=== PATIENT | male | born 1960 | race Two or more races ===

== ENCOUNTER 2022-12-12 17:46 | Inpatient (IN) | payer OTHER ==
[~2022-12-12] VITALS: Ht 170.2 cm; Wt 70.1 kg
[2022-12-12 21:54] LABS: Basophils # (auto) 0 10 ^3/uL (0-0.2); Eosinophils # (auto) 0.1 10 ^3/uL (0-0.8); Hematocrit 17.1 % (41.0-53.0); Lymphocytes # (auto) 0.4 10 ^3/uL (0.4-5.4); Monocytes # (auto) 0.2 10 ^3/uL (0-1.3); Neutrophils # (auto) 2.4 10 ^3/uL (1.6-8.6)
[2022-12-12 21:56] LABS: Basophils % (auto) 0.5 % (0.0-2.0); Eosinophils % (auto) 1.9 % (0.0-7.0); Lymphocytes % (auto) 13.9 % (10.0-50.0); Mean Corpuscular Hgb Conc. 34.2 g/dL (32.0-36.0); Mean Corpuscular Volume 81.9 fL (80.0-100.0); Monocytes % (auto) 5.1 % (0.0-12.0); Neutrophils % (auto) 78.6 % (37.0-80.0); Nucleated Red Blood Cells % 0.1 %; Red Blood Cells 2.09 10^6/uL (4.5-5.90); Red Cell Distribution Width 14.3 % (11.8-14.3); White Blood Cell 3.1 10^3/uL (4.4-10.8)
[2022-12-12 22:05] LABS: Hemoglobin 5.8 g/dL (13.5-17.5)
[2022-12-12 22:16] LABS: Albumin 2.5 g/dL (3.4-5.0); BUN/Creatinine Ratio 21.1; Calcium 7.9 mg/dL (8.5-10.1); Potassium 4.7 mmol/L (3.5-5.1)
[2022-12-12 22:18] LABS: Bilirubin, Total 0.3 mg/dL (0.2-1.0); Total Protein 5.7 g/dL (6.4-8.2)
[2022-12-12 23:04] LABS: Urine Bacteria NONE SEEN /hpf (None Seen); Urine Blood Negative /uL (Negative); Urine Hyaline Cast FEW /lpf (0 - 2); Urine Mucus FEW (None Seen); Urine Specific Gravity 1.012 (1.001-1.035); Urine WBC 1 /hpf (0 - 3)
[2022-12-12 23:30] LABS: Alcohol, Urine < 3.0 mg/dL (0-10); Amphetamine Screen, Urine NEGATIVE (NEGATIVE); Barbiturate Scree,Urine NEGATIVE (NEGATIVE); Benzodiazephine Screen, Urine NEGATIVE (NEGATIVE); Cannabinoid Screen, Urine NEGATIVE (NEGATIVE); Cocaine Screen, Urine NEGATIVE (NEGATIVE); Opiate Scree,Urine NEGATIVE (NEGATIVE); Phencyclidine Screen, Urine NEGATIVE (NEGATIVE)
[2022-12-13] VITALS (13 sets, daily range): BP systolic 146–186; BP diastolic 58–89
[2022-12-13] MEDS ORDERED: DOCUSATE SOD 100 MG CAP PO PRN (00:30)
[2022-12-13] MEDS ORDERED: DEXTROSE (50%) 50ML SYRG IV PRN (00:30)
[2022-12-13] MEDS ORDERED: ACETAMINOPHEN 325 MG TAB PO PRN (00:30)
[2022-12-13] MEDS ORDERED: ONDANSETRON HCL 4 MG/2 ML VIAL IV PRN (00:30)
[2022-12-13] MEDS ORDERED: HYDROcodone-ACET 5/325MG TAB PO PRN (00:30)
[2022-12-13] MEDS ORDERED: NITROGLYCERIN 0.4 MG SL TAB SL PRN (01:15)
[2022-12-13] MEDS ORDERED: MORPHINE SULFATE INJ 2 MG/ml SYRG IV PRN (01:15)
[2022-12-13 06:04] LABS: Potassium 4.3 mmol/L (3.5-5.1)
[2022-12-13] MEDS: SODIUM CHLOR 0.9% PF (SALINE LOCK) 10ML VIAL/SYR IV SCH ×2 (06:08→15:29)
[2022-12-13 06:13] LABS: Albumin 2.4 g/dL (3.4-5.0); BUN/Creatinine Ratio 21.1; Bilirubin, Total 0.4 mg/dL (0.2-1.0); Calcium 7.7 mg/dL (8.5-10.1); Total Protein 5.6 g/dL (6.4-8.2)
[2022-12-13] MEDS ORDERED: HEPARIN SODIUM (PORCINE) 5000 UNITS/ML 1ML VIAL SC ONE (06:30)
[2022-12-13] MEDS ORDERED: FUROSEMIDE 40 MG/4 ML VIAL IV ONE (06:30)
[2022-12-13] MEDS: ACCU-CHEK COMFORT CURVE STRIP VI SCH ×4 (07:00→21:45)
[2022-12-13] MEDS: InsuLIN REG 1unit/0.01ml Soln (100units/ml) SC SCH ×4 (07:00→21:45)
[2022-12-13] MEDS ORDERED: ISOS1TAB28 PO (08:48)
[2022-12-13] MEDS ORDERED: ATOR40TA52 PO (08:48)
[2022-12-13] MEDS: PANTOPRAZOLE 40 MG/10 ML VIAL INJ IV SCH (09:07)
[2022-12-13] MEDS: ATORVASTATIN 20 MG TAB PO SCH (09:07)
[2022-12-13] MEDS: B-COMPLEX W/ C & FOLIC ACID(NEPHROVITE TAB) PO SCH (09:08)
[2022-12-13] MEDS: METOPROLOL SUCCINATE XL 50 MG TAB PO SCH (09:08)
[2022-12-13] MEDS: ASPirin 81 mg TAB PO SCH (09:09)
[2022-12-13] MEDS: hydrALAZINE HCL 20 MG/ML VL IV PRN (09:37)
[2022-12-13] MEDS ORDERED: CLOPIDOGREL BISULFATE 75 MG TAB PO SCH (10:00)
[2022-12-13] MEDS ORDERED: FUROSEMIDE 20 MG/2 ML VIAL IV SCH (10:00)
[2022-12-13] MEDS ORDERED: FUROSEMIDE 40 MG/4 ML VIAL IV SCH (10:00)
[2022-12-13] MEDS ORDERED: HEPARIN SODIUM (PORCINE) 5000 UNITS/ML 1ML VIAL SC SCH (10:00)
[2022-12-13] MEDS ORDERED: POTASSIUM CHL 10 Meq TABLET PO SCH (10:00)
[2022-12-13] MEDS ORDERED: FAMOTIDINE (10MG/ML) 2ML VL IV SCH (10:00)
[2022-12-13 10:52] LABS: Basophils # (auto) 0 10 ^3/uL (0-0.2); Basophils % (auto) 0.6 % (0.0-2.0); Eosinophils # (auto) 0.1 10 ^3/uL (0-0.8); Eosinophils % (auto) 2.1 % (0.0-7.0); Hematocrit 26.3 % (41.0-53.0); Hemoglobin 8.8 g/dL (13.5-17.5); Lymphocytes # (auto) 0.5 10 ^3/uL (0.4-5.4); Lymphocytes % (auto) 14.7 % (10.0-50.0); Mean Corpuscular Hemoglobin 28.6 pg (28.0-32.0); Mean Corpuscular Hgb Conc. 33.4 g/dL (32.0-36.0); Mean Corpuscular Volume 85.8 fL (80.0-100.0); Monocytes # (auto) 0.2 10 ^3/uL (0-1.3); Monocytes % (auto) 5.6 % (0.0-12.0); Neutrophils # (auto) 2.4 10 ^3/uL (1.6-8.6); Nucleated Red Blood Cells % 0.1 %; Red Blood Cells 3.07 10^6/uL (4.5-5.90); Red Cell Distribution Width 14.9 % (11.8-14.3); White Blood Cell 3.2 10^3/uL (4.4-10.8)
[2022-12-13 11:09] LABS: INR 1.11 (0.9-1.15); Partial Thromboplastin Time 29.2 sec (24.6-33.4)
[2022-12-13] MEDS ORDERED: cloNIDine HCL 0.1 MG TAB PO ONE (11:45)
[2022-12-13] MEDS ORDERED: OCTREOTIDE ACETATE 100 MCG in SODIUM CHL 0.9% 50 ML IV ONE (17:30)
[2022-12-13] MEDS: OCTREOTIDE ACETATE 500 MCG in SODIUM CHL 0.9% 99 ML IV SCH (17:45)
[2022-12-14] MEDS: OCTREOTIDE ACETATE 500 MCG in SODIUM CHL 0.9% 99 ML IV SCH (03:30)
[2022-12-14] MEDS: PANTOPRAZOLE 40 MG/10 ML VIAL INJ IV SCH ×3 (04:55→21:57)
[2022-12-14] MEDS: SODIUM CHLOR 0.9% PF (SALINE LOCK) 10ML VIAL/SYR IV SCH ×4 (04:55→21:57)
[2022-12-14] MEDS: InsuLIN REG 1unit/0.01ml Soln (100units/ml) SC SCH ×4 (05:34→21:57)
[2022-12-14] MEDS: ACCU-CHEK COMFORT CURVE STRIP VI SCH ×4 (05:40→21:57)
[2022-12-14 06:11] LABS: Basophils # (auto) 0 10 ^3/uL (0-0.2); Basophils % (auto) 0.5 % (0.0-2.0); Eosinophils # (auto) 0.1 10 ^3/uL (0-0.8); Eosinophils % (auto) 3.3 % (0.0-7.0); Hematocrit 27.1 % (41.0-53.0); Lymphocytes # (auto) 0.6 10 ^3/uL (0.4-5.4); Mean Corpuscular Hgb Conc. 33.4 g/dL (32.0-36.0); Mean Corpuscular Volume 86.9 fL (80.0-100.0); Monocytes # (auto) 0.3 10 ^3/uL (0-1.3); Monocytes % (auto) 7.5 % (0.0-12.0); Neutrophils # (auto) 2.9 10 ^3/uL (1.6-8.6); Neutrophils % (auto) 73.7 % (37.0-80.0); Nucleated Red Blood Cells % 0.1 %; Red Blood Cells 3.12 10^6/uL (4.5-5.90); White Blood Cell 3.9 10^3/uL (4.4-10.8)
[2022-12-14 06:42] LABS: Potassium 5.5 mmol/L (3.5-5.1)
[2022-12-14 06:53] LABS: Albumin 2.8 g/dL (3.4-5.0); BUN/Creatinine Ratio 21.5; Bilirubin, Total 0.7 mg/dL (0.2-1.0); Calcium 7.9 mg/dL (8.5-10.1); Total Protein 6.7 g/dL (6.4-8.2); Uric Acid 11.3 mg/dL (3.5-7.2)
[2022-12-14 06:59] LABS: % Iron Saturation 15.3 % (20-55)
[2022-12-14] MEDS: ISOSORBIDE MONONITRATE ER 60 MG TAB PO SCH (07:15)
[2022-12-14 08:00] VITALS: BP 181/82
[2022-12-14 09:00] VITALS: BP_SYST 160; BP_SYST 172; BP_DIAS 74; BP_DIAS 83
[2022-12-14] MEDS: METOPROLOL SUCCINATE XL 50 MG TAB PO SCH (10:20)
[2022-12-14] MEDS: ASPirin 81 mg TAB PO SCH (10:20)
[2022-12-14] MEDS: B-COMPLEX W/ C & FOLIC ACID(NEPHROVITE TAB) PO SCH (10:20)
[2022-12-14] MEDS: ATORVASTATIN 20 MG TAB PO SCH (10:21)
[2022-12-14] MEDS ORDERED: OMNIPAQUE ORAL SOLN 500ml 12mg/ml PO ONE (10:51)
[2022-12-14] MEDS: hydrALAZINE HCL 20 MG/ML VL IV PRN ×2 (13:21→18:30)
[2022-12-14 17:00] VITALS: BP 160/75
[2022-12-14] MEDS ORDERED: FUROSEMIDE 100 MG/10ML VIAL IV ONE (18:15)
[2022-12-14] MEDS ORDERED: SODIUM CHLORIDE 0.9% 1,000 ML IV ONE (18:15)
[2022-12-14 21:27] LABS: Urine Bacteria NONE SEEN /hpf (None Seen); Urine Blood Negative /uL (Negative); Urine WBC 1 /hpf (0 - 3)
[2022-12-14 21:44] LABS: Protein, Urine 228.7 mg/dL (0.0-11.9)
[2022-12-14 22:00] VITALS: BP 151/68
[2022-12-15 05:00] VITALS: BP 158/78
[2022-12-15] MEDS: ACCU-CHEK COMFORT CURVE STRIP VI SCH ×4 (06:16→22:35)
[2022-12-15] MEDS: ISOSORBIDE MONONITRATE ER 60 MG TAB PO SCH (06:16)
[2022-12-15] MEDS: SODIUM CHLOR 0.9% PF (SALINE LOCK) 10ML VIAL/SYR IV SCH ×3 (06:16→22:35)
[2022-12-15] MEDS: InsuLIN REG 1unit/0.01ml Soln (100units/ml) SC SCH ×4 (06:17→22:00)
[2022-12-15 08:10] VITALS: BP 158/80
[2022-12-15] MEDS ORDERED: NALOXONE HCL 0.4 MG/ML VIAL ONE (08:36)
[2022-12-15] MEDS ORDERED: LIDOCAINE VISCOUS 2% 15ML UD ONE (08:36)
[2022-12-15] MEDS ORDERED: FLUMAZENIL 0.1 MG/ML INJ 10ML MDV IV ONE (08:36)
[2022-12-15] MEDS ORDERED: diphenhdrAMINE HCL 50 MG/1 ML VL ONE (08:37)
[2022-12-15] MEDS ORDERED: MIDAZOLAM HCL 2MG/2ML 2ml VIAL (1mg/ml) ONE (08:37)
[2022-12-15] MEDS ORDERED: fentaNYL CITRATE 100 MCG/2 ML VL ONE (08:37)
[2022-12-15] MEDS: B-COMPLEX W/ C & FOLIC ACID(NEPHROVITE TAB) PO SCH (09:14)
[2022-12-15] MEDS: PANTOPRAZOLE 40 MG/10 ML VIAL INJ IV SCH ×2 (09:14→22:35)
[2022-12-15] MEDS: METOPROLOL SUCCINATE XL 50 MG TAB PO SCH (09:15)
[2022-12-15] MEDS: ATORVASTATIN 20 MG TAB PO SCH (09:15)
[2022-12-15] MEDS: ASPirin 81 mg TAB PO SCH (09:16)
[2022-12-15 11:35] LABS: Albumin 2.7 g/dL (3.4-5.0); Calcium 7.5 mg/dL (8.5-10.1); Potassium 5.3 mmol/L (3.5-5.1)
[2022-12-15 11:39] LABS: BUN/Creatinine Ratio 19.6; Bilirubin, Total 0.8 mg/dL (0.2-1.0); Total Protein 6.1 g/dL (6.4-8.2)
[2022-12-15 12:20] VITALS: BP 138/73
[2022-12-15] MEDS ORDERED: SODIUM ZIRCONIUM CYCL 10 GM PAK PO ONE (16:00)
[2022-12-15 16:05] VITALS: BP 165/83
[2022-12-15 16:50] LABS: Folate (Folic Acid) 18.25 ng/mL (5.38-24)
[2022-12-15] MEDS: hydrALAZINE HCL 20 MG/ML VL IV PRN ×2 (17:00→23:07)
[2022-12-15] MEDS ORDERED: SODIUM BICARBONATE 650 MG TAB PO ONE (17:45)
[2022-12-15 22:00] VITALS: BP 161/74
[2022-12-15] MEDS: SODIUM BICARBONATE 650 MG TAB PO SCH (22:35)
[2022-12-16] VITALS (8 sets, daily range): BP systolic 145–167; BP diastolic 56–81
[2022-12-16] MEDS: SODIUM CHLOR 0.9% PF (SALINE LOCK) 10ML VIAL/SYR IV SCH ×3 (05:23→22:10)
[2022-12-16] MEDS: ACCU-CHEK COMFORT CURVE STRIP VI SCH ×4 (06:06→22:07)
[2022-12-16] MEDS: ISOSORBIDE MONONITRATE ER 60 MG TAB PO SCH (06:06)
[2022-12-16] MEDS: SODIUM BICARBONATE 650 MG TAB PO SCH ×3 (06:06→22:09)
[2022-12-16] MEDS: InsuLIN REG 1unit/0.01ml Soln (100units/ml) SC SCH ×4 (06:16→22:08)
[2022-12-16 07:55] LABS: Basophils # (auto) 0 10 ^3/uL (0-0.2); Basophils % (auto) 0.5 % (0.0-2.0); Eosinophils # (auto) 0.1 10 ^3/uL (0-0.8); Eosinophils % (auto) 2.5 % (0.0-7.0); Hematocrit 24.7 % (41.0-53.0); Hemoglobin 8.5 g/dL (13.5-17.5); Lymphocytes # (auto) 0.5 10 ^3/uL (0.4-5.4); Lymphocytes % (auto) 11.6 % (10.0-50.0); Mean Corpuscular Hemoglobin 28.6 pg (28.0-32.0); Mean Corpuscular Hgb Conc. 34.3 g/dL (32.0-36.0); Mean Corpuscular Volume 83.4 fL (80.0-100.0); Monocytes # (auto) 0.2 10 ^3/uL (0-1.3); Monocytes % (auto) 5.5 % (0.0-12.0); Neutrophils # (auto) 3.1 10 ^3/uL (1.6-8.6); Neutrophils % (auto) 79.9 % (37.0-80.0); Nucleated Red Blood Cells % 0.1 %; Red Blood Cells 2.96 10^6/uL (4.5-5.90); Red Cell Distribution Width 15.3 % (11.8-14.3); White Blood Cell 3.9 10^3/uL (4.4-10.8)
[2022-12-16 08:07] LABS: Immunoglobulin G, Serum 1079 mg/dL (603-1613)
[2022-12-16] MEDS ORDERED: LIDOCAINE VISCOUS 2% 15ML UD ONE (08:47)
[2022-12-16] MEDS ORDERED: MIDAZOLAM HCL 2MG/2ML 2ml VIAL (1mg/ml) ONE (08:47)
[2022-12-16] MEDS ORDERED: fentaNYL CITRATE 100 MCG/2 ML VL ONE (08:48)
[2022-12-16] MEDS: PANTOPRAZOLE 40 MG/10 ML VIAL INJ IV SCH ×2 (09:16→22:09)
[2022-12-16] MEDS: B-COMPLEX W/ C & FOLIC ACID(NEPHROVITE TAB) PO SCH (09:16)
[2022-12-16] MEDS: ASPirin 81 mg TAB PO SCH (09:17)
[2022-12-16] MEDS: ATORVASTATIN 20 MG TAB PO SCH (09:17)
[2022-12-16] MEDS: METOPROLOL SUCCINATE XL 50 MG TAB PO SCH (09:17)
[2022-12-16 09:21] LABS: Albumin 2.6 g/dL (3.4-5.0); BUN/Creatinine Ratio 19.5; Calcium 8.1 mg/dL (8.5-10.1); Potassium 4.7 mmol/L (3.5-5.1)
[2022-12-16 09:24] LABS: Bilirubin, Total 0.8 mg/dL (0.2-1.0); Total Protein 6.3 g/dL (6.4-8.2)
[2022-12-16] MEDS: diphenhdrAMINE HCL 50 MG/1 ML VL ONE ×2 (10:07→10:12)
[2022-12-16 10:17] LABS: Hepatitis B Surface Antibody Negative (Negative)
[2022-12-16 10:56] LABS: Hepatitis A Total Antibody Positive (Negative)
[2022-12-16 15:28] LABS: Hepatitis C Antibody Positive (Negative)
[2022-12-16] MEDS: hydrALAZINE HCL 20 MG/ML VL IV PRN (17:00)
[2022-12-17] VITALS (7 sets, daily range): BP systolic 125–167; BP diastolic 55–75
[2022-12-17] MEDS: hydrALAZINE HCL 20 MG/ML VL IV PRN ×2 (06:04→13:49)
[2022-12-17] MEDS: SODIUM CHLOR 0.9% PF (SALINE LOCK) 10ML VIAL/SYR IV SCH ×3 (06:04→21:28)
[2022-12-17] MEDS: SODIUM BICARBONATE 650 MG TAB PO SCH ×3 (06:04→21:28)
[2022-12-17] MEDS: InsuLIN REG 1unit/0.01ml Soln (100units/ml) SC SCH ×4 (06:09→22:23)
[2022-12-17] MEDS: ACCU-CHEK COMFORT CURVE STRIP VI SCH ×4 (06:10→21:29)
[2022-12-17] MEDS: ISOSORBIDE MONONITRATE ER 60 MG TAB PO SCH (07:08)
[2022-12-17 07:15] LABS: Basophils # (auto) 0 10 ^3/uL (0-0.2); Eosinophils # (auto) 0.1 10 ^3/uL (0-0.8); Lymphocytes # (auto) 0.6 10 ^3/uL (0.4-5.4); Mean Corpuscular Volume 83.4 fL (80.0-100.0)
[2022-12-17 07:18] LABS: Basophils % (auto) 0.3 % (0.0-2.0); Eosinophils % (auto) 1.9 % (0.0-7.0); Hematocrit 23.2 % (41.0-53.0); Mean Corpuscular Hemoglobin 28.8 pg (28.0-32.0); Mean Corpuscular Hgb Conc. 34.6 g/dL (32.0-36.0); Monocytes # (auto) 0.3 10 ^3/uL (0-1.3); Monocytes % (auto) 6.3 % (0.0-12.0); Neutrophils # (auto) 3.3 10 ^3/uL (1.6-8.6); Neutrophils % (auto) 78.5 % (37.0-80.0); Nucleated Red Blood Cells % 0.1 %; Red Blood Cells 2.79 10^6/uL (4.5-5.90); Red Cell Distribution Width 15.6 % (11.8-14.3); White Blood Cell 4.3 10^3/uL (4.4-10.8)
[2022-12-17 07:26] LABS: Potassium 4.4 mmol/L (3.5-5.1)
[2022-12-17 07:34] LABS: Albumin 2.7 g/dL (3.4-5.0); BUN/Creatinine Ratio 19.4; Bilirubin, Total 0.6 mg/dL (0.2-1.0); Calcium 7.6 mg/dL (8.5-10.1); Total Protein 6.1 g/dL (6.4-8.2)
[2022-12-17] MEDS: B-COMPLEX W/ C & FOLIC ACID(NEPHROVITE TAB) PO SCH (10:13)
[2022-12-17] MEDS: PANTOPRAZOLE 40 MG/10 ML VIAL INJ IV SCH ×2 (10:13→21:28)
[2022-12-17] MEDS: ASPirin 81 mg TAB PO SCH (10:14)
[2022-12-17] MEDS: ATORVASTATIN 20 MG TAB PO SCH (10:15)
[2022-12-17] MEDS: METOPROLOL SUCCINATE XL 50 MG TAB PO SCH (10:15)
[2022-12-17] MEDS ORDERED: amLODIPine BESYLATE 5 MG TAB PO ONE (15:45)
[2022-12-17] MEDS ORDERED: SPIRONOLACTONE 25 MG TAB PO ONE (20:45)
[2022-12-17] MEDS ORDERED: FUROSEMIDE 40 MG TAB PO ONE (20:45)
[2022-12-18 05:00] VITALS: BP 154/62
[2022-12-18] MEDS: SODIUM CHLOR 0.9% PF (SALINE LOCK) 10ML VIAL/SYR IV SCH ×3 (05:26→21:27)
[2022-12-18] MEDS: hydrALAZINE HCL 20 MG/ML VL IV PRN (05:26)
[2022-12-18] MEDS: SODIUM BICARBONATE 650 MG TAB PO SCH ×3 (05:26→21:27)
[2022-12-18] MEDS: ISOSORBIDE MONONITRATE ER 60 MG TAB PO SCH (06:32)
[2022-12-18] MEDS: ACCU-CHEK COMFORT CURVE STRIP VI SCH ×4 (06:33→21:27)
[2022-12-18] MEDS: InsuLIN REG 1unit/0.01ml Soln (100units/ml) SC SCH ×4 (06:33→21:33)
[2022-12-18 09:00] VITALS: BP 168/85
[2022-12-18] MEDS ORDERED: SPIRONOLACTONE 25 MG TAB PO SCH (10:00)
[2022-12-18] MEDS ORDERED: FUROSEMIDE 20 MG TAB PO SCH (10:00)
[2022-12-18] MEDS: ATORVASTATIN 20 MG TAB PO SCH (10:32)
[2022-12-18] MEDS: METOPROLOL SUCCINATE XL 50 MG TAB PO SCH (10:33)
[2022-12-18] MEDS: B-COMPLEX W/ C & FOLIC ACID(NEPHROVITE TAB) PO SCH (10:33)
[2022-12-18] MEDS: ASPirin 81 mg TAB PO SCH (10:33)
[2022-12-18] MEDS: PANTOPRAZOLE 40 MG/10 ML VIAL INJ IV SCH ×2 (10:35→21:26)
[2022-12-18] MEDS: amLODIPine BESYLATE 5 MG TAB PO SCH (10:35)
[2022-12-18 11:17] LABS: Basophils # (auto) 0 10 ^3/uL (0-0.2); Eosinophils # (auto) 0.1 10 ^3/uL (0-0.8); Hemoglobin 7.8 g/dL (13.5-17.5); Monocytes # (auto) 0.2 10 ^3/uL (0-1.3); Nucleated Red Blood Cells % 0.1 %; White Blood Cell 3.5 10^3/uL (4.4-10.8)
[2022-12-18 11:19] LABS: Basophils % (auto) 0.3 % (0.0-2.0); Eosinophils % (auto) 2.1 % (0.0-7.0); Hematocrit 22.3 % (41.0-53.0); Lymphocytes # (auto) 0.4 10 ^3/uL (0.4-5.4); Lymphocytes % (auto) 12.4 % (10.0-50.0); Mean Corpuscular Hemoglobin 29.1 pg (28.0-32.0); Mean Corpuscular Volume 83.1 fL (80.0-100.0); Monocytes % (auto) 5.1 % (0.0-12.0); Neutrophils # (auto) 2.8 10 ^3/uL (1.6-8.6); Neutrophils % (auto) 80.1 % (37.0-80.0); Red Blood Cells 2.68 10^6/uL (4.5-5.90)
[2022-12-18 11:53] LABS: Potassium 4.4 mmol/L (3.5-5.1)
[2022-12-18 12:04] LABS: Albumin 2.5 g/dL (3.4-5.0); BUN/Creatinine Ratio 16.1; Bilirubin, Total 0.8 mg/dL (0.2-1.0); Calcium 7.5 mg/dL (8.5-10.1); Total Protein 5.8 g/dL (6.4-8.2)
[2022-12-18] MEDS: FUROSEMIDE 40 MG TAB PO SCH (14:29)
[2022-12-18 17:00] VITALS: BP 130/65
[2022-12-18] MEDS: hydrALAZINE HCL 10 MG TAB PO SCH ×2 (17:59→23:32)
[2022-12-18 22:00] VITALS: BP 139/62
[2022-12-19 05:00] VITALS: BP 149/69
[2022-12-19] MEDS: SODIUM BICARBONATE 650 MG TAB PO SCH ×3 (05:07→22:08)
[2022-12-19] MEDS: hydrALAZINE HCL 10 MG TAB PO SCH ×4 (05:07→23:59)
[2022-12-19] MEDS: SODIUM CHLOR 0.9% PF (SALINE LOCK) 10ML VIAL/SYR IV SCH ×3 (06:00→22:10)
[2022-12-19] MEDS: InsuLIN REG 1unit/0.01ml Soln (100units/ml) SC SCH ×3 (06:01→17:00)
[2022-12-19] MEDS: ACCU-CHEK COMFORT CURVE STRIP VI SCH ×4 (06:01→22:10)
[2022-12-19] MEDS: ISOSORBIDE MONONITRATE ER 60 MG TAB PO SCH (06:02)
[2022-12-19 09:00] VITALS: BP 145/64
[2022-12-19] MEDS: PANTOPRAZOLE 40 MG/10 ML VIAL INJ IV SCH ×2 (10:52→22:07)
[2022-12-19] MEDS: amLODIPine BESYLATE 5 MG TAB PO SCH (10:52)
[2022-12-19] MEDS: METOPROLOL SUCCINATE XL 50 MG TAB PO SCH (10:53)
[2022-12-19] MEDS: FUROSEMIDE 40 MG TAB PO SCH (10:53)
[2022-12-19] MEDS: ATORVASTATIN 20 MG TAB PO SCH (10:53)
[2022-12-19] MEDS: ASPirin 81 mg TAB PO SCH (10:54)
[2022-12-19] MEDS: B-COMPLEX W/ C & FOLIC ACID(NEPHROVITE TAB) PO SCH (10:54)
[2022-12-19 11:36] LABS: Basophils # (auto) 0 10 ^3/uL (0-0.2); Eosinophils # (auto) 0.1 10 ^3/uL (0-0.8); Hematocrit 22.3 % (41.0-53.0); Lymphocytes # (auto) 0.5 10 ^3/uL (0.4-5.4); Monocytes # (auto) 0.2 10 ^3/uL (0-1.3); Neutrophils # (auto) 3.1 10 ^3/uL (1.6-8.6); Nucleated Red Blood Cells % 0.1 %; White Blood Cell 3.9 10^3/uL (4.4-10.8)
[2022-12-19 11:38] LABS: Basophils % (auto) 0.4 % (0.0-2.0); Hemoglobin 7.7 g/dL (13.5-17.5); Lymphocytes % (auto) 12.6 % (10.0-50.0); Mean Corpuscular Hemoglobin 28.5 pg (28.0-32.0); Mean Corpuscular Hgb Conc. 34.5 g/dL (32.0-36.0); Mean Corpuscular Volume 82.6 fL (80.0-100.0); Monocytes % (auto) 4.7 % (0.0-12.0); Neutrophils % (auto) 79.3 % (37.0-80.0); Red Cell Distribution Width 15.8 % (11.8-14.3)
[2022-12-19 11:50] LABS: Albumin 2.5 g/dL (3.4-5.0); Calcium 7.7 mg/dL (8.5-10.1); Potassium 4.6 mmol/L (3.5-5.1)
[2022-12-19 11:54] LABS: BUN/Creatinine Ratio 14.6; Bilirubin, Total 0.6 mg/dL (0.2-1.0)
[2022-12-19 13:00] VITALS: BP 119/58
[2022-12-19] MEDS ORDERED: FUROSEMIDE 40 MG/4 ML VIAL IV ONE (13:45)
[2022-12-19 17:00] VITALS: BP 122/65
[2022-12-19 22:00] VITALS: BP 137/81
[2022-12-19] MEDS: HEPARIN SODIUM (PORCINE) 5000 UNITS/ML 1ML VIAL SC SCH (22:00)
[2022-12-20 05:00] VITALS: BP 155/63
[2022-12-20] MEDS: SODIUM CHLOR 0.9% PF (SALINE LOCK) 10ML VIAL/SYR IV SCH ×3 (06:00→22:09)
[2022-12-20] MEDS: hydrALAZINE HCL 10 MG TAB PO SCH ×3 (06:35→17:16)
[2022-12-20] MEDS: SODIUM BICARBONATE 650 MG TAB PO SCH ×3 (06:36→22:09)
[2022-12-20] MEDS: ISOSORBIDE MONONITRATE ER 60 MG TAB PO SCH (06:37)
[2022-12-20] MEDS: ACCU-CHEK COMFORT CURVE STRIP VI SCH ×4 (06:41→22:09)
[2022-12-20] MEDS: InsuLIN REG 1unit/0.01ml Soln (100units/ml) SC SCH ×3 (06:42→17:12)
[2022-12-20 09:00] VITALS: BP 150/62
[2022-12-20] MEDS: FUROSEMIDE 40 MG TAB PO SCH (09:47)
[2022-12-20] MEDS: ATORVASTATIN 20 MG TAB PO SCH (09:47)
[2022-12-20] MEDS: METOPROLOL SUCCINATE XL 50 MG TAB PO SCH (09:47)
[2022-12-20] MEDS: ASPirin 81 mg TAB PO SCH (09:47)
[2022-12-20] MEDS: B-COMPLEX W/ C & FOLIC ACID(NEPHROVITE TAB) PO SCH (09:48)
[2022-12-20] MEDS: PANTOPRAZOLE 40 MG/10 ML VIAL INJ IV SCH ×2 (09:48→22:09)
[2022-12-20] MEDS: amLODIPine BESYLATE 5 MG TAB PO SCH (09:48)
[2022-12-20] MEDS: HEPARIN SODIUM (PORCINE) 5000 UNITS/ML 1ML VIAL SC SCH ×2 (09:48→22:00)
[2022-12-20 13:00] VITALS: BP 112/58
[2022-12-20 15:10] LABS: Basophils # (auto) 0 10 ^3/uL (0-0.2); Eosinophils # (auto) 0.1 10 ^3/uL (0-0.8); Eosinophils % (auto) 3.1 % (0.0-7.0); Hemoglobin 7.6 g/dL (13.5-17.5); Monocytes # (auto) 0.2 10 ^3/uL (0-1.3); White Blood Cell 3.2 10^3/uL (4.4-10.8)
[2022-12-20 15:14] LABS: Basophils % (auto) 0.5 % (0.0-2.0); Hematocrit 21.8 % (41.0-53.0); Lymphocytes # (auto) 0.5 10 ^3/uL (0.4-5.4); Lymphocytes % (auto) 14.8 % (10.0-50.0); Mean Corpuscular Hemoglobin 29.2 pg (28.0-32.0); Mean Corpuscular Volume 83.5 fL (80.0-100.0); Monocytes % (auto) 5.2 % (0.0-12.0); Neutrophils # (auto) 2.4 10 ^3/uL (1.6-8.6); Neutrophils % (auto) 76.4 % (37.0-80.0); Nucleated Red Blood Cells % 0.3 %; Red Blood Cells 2.61 10^6/uL (4.5-5.90); Red Cell Distribution Width 15.5 % (11.8-14.3)
[2022-12-20 15:17] LABS: Albumin 2.3 g/dL (3.4-5.0); BUN/Creatinine Ratio 14.3; Calcium 7.4 mg/dL (8.5-10.1); Potassium 4.4 mmol/L (3.5-5.1)
[2022-12-20 15:19] LABS: Bilirubin, Total 0.4 mg/dL (0.2-1.0); Total Protein 5.9 g/dL (6.4-8.2)
[2022-12-20 17:00] VITALS: BP 129/56
[2022-12-20 22:00] VITALS: BP 154/70
[2022-12-20] MEDS ORDERED: InsuLIN REG 1unit/0.01ml Soln (100units/ml) SC SCH (22:00)
[2022-12-21] MEDS: hydrALAZINE HCL 10 MG TAB PO SCH ×3 (00:22→12:29)
[2022-12-21 05:00] VITALS: BP 151/66
[2022-12-21] MEDS: SODIUM CHLOR 0.9% PF (SALINE LOCK) 10ML VIAL/SYR IV SCH ×2 (06:22→14:00)
[2022-12-21] MEDS: SODIUM BICARBONATE 650 MG TAB PO SCH ×2 (06:23→14:00)
[2022-12-21] MEDS: ACCU-CHEK COMFORT CURVE STRIP VI SCH ×2 (06:24→11:50)
[2022-12-21] MEDS: ISOSORBIDE MONONITRATE ER 60 MG TAB PO SCH (06:24)
[2022-12-21] MEDS: InsuLIN REG 1unit/0.01ml Soln (100units/ml) SC SCH ×2 (06:28→11:51)
[2022-12-21 08:30] VITALS: BP 142/66
[2022-12-21] MEDS: ASPirin 81 mg TAB PO SCH (09:46)
[2022-12-21] MEDS: amLODIPine BESYLATE 5 MG TAB PO SCH (09:47)
[2022-12-21] MEDS: FUROSEMIDE 40 MG TAB PO SCH (09:47)
[2022-12-21] MEDS: ATORVASTATIN 20 MG TAB PO SCH (09:47)
[2022-12-21] MEDS: B-COMPLEX W/ C & FOLIC ACID(NEPHROVITE TAB) PO SCH (09:47)
[2022-12-21] MEDS: HEPARIN SODIUM (PORCINE) 5000 UNITS/ML 1ML VIAL SC SCH (09:48)
[2022-12-21] MEDS: METOPROLOL SUCCINATE XL 50 MG TAB PO SCH (09:48)
[2022-12-21] MEDS: PANTOPRAZOLE 40 MG/10 ML VIAL INJ IV SCH (09:48)
[2022-12-21] MEDS ORDERED: FURO40TA4 PO (12:19)
[2022-12-21] MEDS ORDERED: SODI650T PO (12:19)
[2022-12-21] MEDS ORDERED: FAMO20TA10 PO (12:19)
[2022-12-21] MEDS ORDERED: METO-6 PO (12:19)
[2022-12-21] MEDS ORDERED: AML5T PO (12:19)
[2022-12-21] MEDS ORDERED: SUCR1SUS10 PO (12:22)
[2022-12-21 12:48] VITALS: BP 136/68
[2022-12-21 13:42] VITALS: BP 136/68
== END 2022-12-21 14:30 | disposition home or self-care (01) | DRG 241 ==
LOC: EDBD 17:46 → ER 17:54 → OVERFLOW 12-13 01:03 → TELE-E-ADS 12-13 13:20 → TELE-WESTW 12-13 14:38
PROVIDERS: ADMIT Nurse Practitioner Family; ATTEND Student in an Organized Health Care Education/Training Program
PROC: 30233N1 Transfusion of Nonautologous Red Blood Cells into Peripheral Vein, Percutaneous Approach (ICD-10-PCS; 2022-12-13)
PROC: 0DB68ZX Excision of Stomach, Via Natural or Artificial Opening Endoscopic, Diagnostic (ICD-10-PCS; 2022-12-16)
PROC: 0DB98ZX Excision of Duodenum, Via Natural or Artificial Opening Endoscopic, Diagnostic (ICD-10-PCS; principal; 2022-12-16 10:02)
DX: K29.91 Gastroduodenitis, unspecified, with bleeding (principal); D61.818 Other pancytopenia; I21.A1 Myocardial infarction type 2; I13.0 Hypertensive heart and chronic kidney disease with heart failure and stage 1 through stage 4 chronic kidney disease, or unspecified chronic kidney disease; E46 Unspecified protein-calorie malnutrition; N17.9 Acute kidney failure, unspecified; I95.9 Hypotension, unspecified; I50.22 Chronic systolic (congestive) heart failure; D62 Acute posthemorrhagic anemia; D69.59 Other secondary thrombocytopenia; E11.22 Type 2 diabetes mellitus with diabetic chronic kidney disease; E78.5 Hyperlipidemia, unspecified; K74.60 Unspecified cirrhosis of liver; N39.0 Urinary tract infection, site not specified; E87.5 Hyperkalemia; I34.0 Nonrheumatic mitral (valve) insufficiency; K31.9 Disease of stomach and duodenum, unspecified; K44.9 Diaphragmatic hernia without obstruction or gangrene; N18.4 Chronic kidney disease, stage 4 (severe); Z68.25 Body mass index [BMI] 25.0-25.9, adult
CPT/HCPCS: 36415; 43239; 71045; 71046; 74176; 76700; 78582; 80053; 80307; 81001; 82043; 82270; 82570; 82607; 82746; 82784; 82962; 83036; 83540; 83550; 83605; 83880; 83883; 84155; 84156; 84165; 84300; 84484; 84550; 85025; 85379; 85610; 85730; 86334; 86703; 86704; 86706; 86708; 86803; 86850; 86900; 86901; 86920; 87081; 87340; 87426; 93005; 93306; 96374; 96375; 96376; 99291; C9113; G0378; J1815; J2250; J3490